=== PATIENT | male | born 1950 | race Caucasian/White ===

== ENCOUNTER 2017-04-09 10:33 | Emergency (ER) | payer BC ==
[2017-04-09 10:43] VITALS: BP 116/67
[2017-04-09] MEDS ORDERED: DOXYcycline CAP(*) 100 MG PO ONE (11:00)
[2017-04-09] MEDS ORDERED: DOXYcycline CAP(*) 100 MG ONE (11:11)
--- NOTE | 2017-05-02 10:41 | UC ---
Skin Complaint HPI - HPI Summary HPI Summary: Tick bite L kelly, pt removed "last night". Cites rash at bite site. denies symptoms. Pt retained tick. Denies any AVILA, neurological symptoms, pain at site , muscle aches or joint pains. He states the tick must have been attached for less than 24 hours and he has been outside recently. Denies previous tick bites recently and denies any history of lyme disease. - History of Current Complaint Chief Complaint: UCSkin Time Seen by Provider: 04/09/17 10:38 Stated Complaint: TICK BITE Hx Obtained From: Patient Onset/Duration: Sudden Onset Skin Exposure Onset/Duration: Minutes Ago Timing: Constant Onset Severity: Mild Current Severity: Mild Pain Intensity: 0 Pain Scale Used: 0-10 Numeric Location: Discrete - left kelly without EM rash Character: Redness Aggravating: Nothing Alleviating: Nothing Associated Signs & Symptoms: Positive: Negative Related History: Possible Reaction to: Insect - Allergy/Home Medications Allergies/Adverse Reactions: Allergies Allergy/AdvReac Type Severity Reaction Status Date / Time Amoxicillin [From Augmentin] Allergy Rash Verified 08/27/14 15:19 Clavulanic Acid Allergy Rash Verified 08/27/14 15:19 [From Augmentin] Home Medications: Home Medications Ibuprofen [Advil] 400 mg PO 04/09/17 [History] Review of Systems Constitutional: Negative Skin: Other - tick bite over kelly Respiratory: Negative Cardiovascular: Negative Motor: Negative Neurovascular: Negative Musculoskeletal: Negative Neurological: Negative Psychological: Negative All Other Systems Reviewed And Are Negative: Yes PMH/Surg Hx/FS Hx/Imm Hx Previously Healthy: Yes - Surgical History Surgical History: Yes Surgery Procedure, Year, and Place: 2 - KNEE - [facility]IL[facility]- 1977 & 1981. LAMINECTOMY - 2007 - Family History Known Family History: Positive: Unknown - Social History Occupation: Unemployed, Retired Lives: With Family Alcohol Use: Daily Substance Use Type: None Smoking Status (MU): Never Smoked Tobacco Have You Smoked in the Last Year: No Physical Exam Triage Information Reviewed: Yes Appearance: Well-Appearing, No Pain Distress, Well-Nourished Vital Signs: Initial Vital Signs Temp 98.2 F 04/09/17 10:43 Pulse 70 04/09/17 10:43 Resp 16 04/09/17 10:43 BP 116/67 04/09/17 10:43 Pulse Ox 99 06/04/17 10:43 Vital Signs Reviewed: Yes Eye Exam: Normal Neck exam: Normal Neck: Positive: Supple, Nontender, No Lymphadenopathy Respiratory Exam: Normal Respiratory: Positive: Chest non-tender, Lungs clear Cardiovascular Exam: Normal Cardiovascular: Positive: RRR Musculoskeletal Exam: Normal Musculoskeletal: Positive: Strength Intact Neurological Exam: Normal Neurological: Positive: Alert Psychological Exam: Normal Psychological: Positive: Normal Response To Family Skin Exam: Normal Skin: Positive: Other - left kelly tick bite without EM rash Course/Dx - Course Course Of Treatment: Left kelly tick bite with erythema with central darkened area. Without EM rash. Treatment options explained. Will not treat prophylactically based on ISDA guidelines. Patient OK with discharge and plan. - Differential Diagnoses - Skin Complaint Differential Diagnoses: Drug Rash, Tick Born Illness, Urticaria - Diagnoses Provider Diagnoses: Tick bite Discharge - Discharge Plan Condition: Stable Disposition: HOME Patient Education Materials: Tick Bite (ED) Referrals: Jennifer Nelson MD [Primary Care Provider] - Additional Instructions: Tick Bite: Approach to prophylaxis : According to the Infectious Diseases Society of [place] (IDSA) guidelines that recommend antibiotic prophylaxis only in patients who meet all of the following criteria: 1. Attached tick identified as an adult or nymphal I. scapularis tick (deer tick). 2. Tick is estimated to have been attached for 36 hours (by degree of engorgement or time of exposure). 3. Prophylaxis is begun within 72 hours of tick removal. Local rate of infection of ticks with B. burgdorferi is 20 percent if attached for over 48 hours (these rates of infection have been shown to occur in parts of [place], parts of the [facility], and parts of [place] and [place]). If you experience a tick and time of attachment is believed to be less than 36 hours, you may remove the tick with head intact and no need for prophylaxis. If over 36 hours, please come into UC. Prophylactic doxycycline is not recommended for ticks attached less than 36 hours.
== END 2017-04-09 11:14 | disposition home or self-care (01) ==
LOC: UCEAST 10:33
DX: S80.862A Insect bite (nonvenomous), left lower leg, initial encounter (principal); W57.XXXA Bitten or stung by nonvenomous insect and other nonvenomous arthropods, initial encounter; Y93.9 Activity, unspecified; Y92.9 Unspecified place or not applicable; Y99.9 Unspecified external cause status
CPT/HCPCS: 99212; A9270-GY; G0463